=== PATIENT | male | born 1940 | race Caucasian/White ===

== ENCOUNTER 2018-03-14 10:36 | Inpatient (IN) | payer OTHER ==
[~2018-03-14] VITALS: Ht 177.8 cm; Wt 89.0 kg
[2018-03-14 11:38] LABS: BASOPHIL % 0.3 % (0-2); PLATELET COUNT 217 x10^3mcL (130-400); RED CELL DISTRIBUTION WIDTH 18.4 % (11.5-14.5)
[2018-03-14 11:58] LABS: CALCIUM 8.2 mg/dL (8.5-10.1); CARBON DIOXIDE 23.6 mmol/L (21-32); CHLORIDE SERUM 99 mmol/L (98-107); CREATININE SERUM 1.6 mg/dL (0.7-1.3); GLUCOSE SERUM 210 mg/dL (74-106); SODIUM SERUM 131 mmol/L (136-145)
[2018-03-14 12:03] LABS: POTASSIUM SERUM 5.7 mmol/L (3.5-5.1)
[2018-03-14] MEDS ORDERED: CARVEDILOL3.125 M1 PO (12:59)
[2018-03-14] MEDS ORDERED: DIGOXIN0.125 M1 PO (13:00)
[2018-03-14] MEDS ORDERED: ELIQUIS2.5 MG PO (13:00)
[2018-03-14] MEDS ORDERED: CARDIZEM CD180 MG PO (13:00)
[2018-03-14] MEDS ORDERED: MULTI-VITAMINS1 TAB (13:01)
[2018-03-14] MEDS ORDERED: METFORMIN HYDR500 M1 PO (13:01)
[2018-03-14] MEDS ORDERED: LIPI10 PO (13:01)
[2018-03-14 13:16] LABS: CHOLESTEROL/HDL RATIO 2.2; PHOSPHOROUS 3.8 mg/dL (2.5-4.9)
[2018-03-14 13:24] LABS: FREE T4 0.95 ng/dL (0.76-1.46); FREE THYROXINE INDEX 2.3 ug/dL (1.4-4.5); T4(THYROXINE) 6.4 ug/dL (4.7-13.3)
[2018-03-14 13:44] VITALS: BP 182/91
[2018-03-14 14:32] LABS: T3 TOTAL 0.92 ng/mL
[2018-03-14 16:00] VITALS: BP 182/105
[2018-03-14 17:32] LABS: microscopic required? NO
[2018-03-14 17:48] LABS: TOTAL IRON BINDING CAPACITY 368 ug/dL (250-450)
[2018-03-14 17:51] LABS: CALCIUM 8.9 mg/dL (8.5-10.1); CARBON DIOXIDE 28.7 mmol/L (21-32); CHLORIDE SERUM 102 mmol/L (98-107); CREATININE SERUM 1.5 mg/dL (0.7-1.3); GLUCOSE SERUM 125 mg/dL (74-106); POTASSIUM SERUM 4.8 mmol/L (3.5-5.1); SODIUM SERUM 137 mmol/L (136-145)
[2018-03-14 17:52] LABS: IRON 13 ug/dL (65-170)
[2018-03-14 18:00] LABS: RED BLOOD CELLS 2.91 M/mm3 (4.52-5.90)
[2018-03-14 18:14] LABS: UA SPECIFIC GRAVITY <=1.005 (1.005-1.035); urine erythrocyte NEGATIVE (NEGATIVE)
[2018-03-14 18:23] LABS: AMPHETAMINE QUAL UR NONE DETECTED (See below)
[2018-03-14 18:36] LABS: CREATININE UR 7.3 mg/dL
[2018-03-14 20:00] VITALS: BP 140/81
[2018-03-14] MEDS ORDERED: JANUVIA100 M1 PO (22:33)
[2018-03-14] MEDS ORDERED: LISINOPRIL10 MG PO (22:33)
[2018-03-15] VITALS (8 sets, daily range): BP systolic 99–143; BP diastolic 49–86
[2018-03-15 06:33] LABS: CALCIUM 8.6 mg/dL (8.5-10.1); CARBON DIOXIDE 23.2 mmol/L (21-32); CHLORIDE SERUM 104 mmol/L (98-107); CREATININE SERUM 1.2 mg/dL (0.7-1.3); GLUCOSE SERUM 132 mg/dL (74-106); MAGNESIUM 1.8 mg/dL (1.8-2.4); PHOSPHOROUS 3.6 mg/dL (2.5-4.9); POTASSIUM SERUM 3.8 mmol/L (3.5-5.1); SODIUM SERUM 139 mmol/L (136-145)
[2018-03-15 07:32] LABS: BASOPHIL % 0.6 % (0-2); PLATELET COUNT 237 x10^3mcL (130-400)
[2018-03-15 07:33] LABS: RED CELL DISTRIBUTION WIDTH 18.1 % (11.5-14.5)
[2018-03-16 05:39] VITALS: BP 134/90
[2018-03-16 07:21] LABS: BASOPHIL % 0.9 % (0-2); PLATELET COUNT 136 x10^3mcL (130-400)
[2018-03-16 07:25] LABS: CALCIUM 8.9 mg/dL (8.5-10.1); CARBON DIOXIDE 23.4 mmol/L (21-32); CHLORIDE SERUM 104 mmol/L (98-107); CREATININE SERUM 1.2 mg/dL (0.7-1.3); GLUCOSE SERUM 124 mg/dL (74-106); POTASSIUM SERUM 3.9 mmol/L (3.5-5.1); SODIUM SERUM 138 mmol/L (136-145)
[2018-03-16 07:29] LABS: RED CELL DISTRIBUTION WIDTH 17.1 % (11.5-14.5)
[2018-03-16 10:05] VITALS: BP 140/94
[2018-03-16 12:54] VITALS: BP 130/64
[2018-03-16 15:03] VITALS: BP 130/64
[2018-03-16] MEDS ORDERED: LOP50 PO (15:03)
== END 2018-03-16 16:38 | disposition home or self-care (01) | DRG 683 ==
LOC: ED 10:36 → IC 11:56 → DU 11:56 → IC 12:20 → DU 03-15 01:23
PROVIDERS: Emergency Medicine; Internal Medicine
DX: N17.0 Acute kidney failure with tubular necrosis (principal); E87.1 Hypo-osmolality and hyponatremia; R00.1 Bradycardia, unspecified; E11.65 Type 2 diabetes mellitus with hyperglycemia; E87.5 Hyperkalemia; D50.9 Iron deficiency anemia, unspecified; E02 Subclinical iodine-deficiency hypothyroidism; T46.0X5A Adverse effect of cardiac-stimulant glycosides and drugs of similar action, initial encounter; Y92.018 Other place in single-family (private) house as the place of occurrence of the external cause; I48.2 Chronic atrial fibrillation; Z79.01 Long term (current) use of anticoagulants; Z91.041 Radiographic dye allergy status; I10 Essential (primary) hypertension; E78.00 Pure hypercholesterolemia, unspecified; Z90.49 Acquired absence of other specified parts of digestive tract; Z79.84 Long term (current) use of oral hypoglycemic drugs; Z82.3 Family history of stroke; E78.5 Hyperlipidemia, unspecified; I95.9 Hypotension, unspecified; T44.7X5A Adverse effect of beta-adrenoreceptor antagonists, initial encounter; T46.1X5A Adverse effect of calcium-channel blockers, initial encounter
CPT/HCPCS: 82962; 83880; 84439; J1610; J1815; J2765; J3490; J7030; J7040; Q0092